=== PATIENT | male | born 1995 | race Caucasian/White ===

== ENCOUNTER 2017-02-02 20:34 | Emergency (ER) | payer OTHER ==
[~2017-02-02 20:34] MED LIST: DOXYCYCLINE; ELIMITE60 GM TOP; LORTAB 10-5001 EACH PO; NO MEDICATIONS; SILVADENE TOP; TYLENOL #3; VOLTAREN75 MG PO
[2017-02-02 21:00] LABS: URINE APPEARANCE CLEAR; URINE BILIRUBIN NEG (NEG); URINE BLOOD NEG (NEG); URINE COLOR YELLOW; URINE GLUCOSE NEG (NORM); URINE KETONE NEG (NEG); URINE LEUKOCYTE ESTERASE NEG (NEG); URINE NITRATE NEG (NEG); URINE PH 7.5 (5-8); URINE PROTEIN NEG (NEG); URINE SPECIFIC GRAVITY 1.015 (1.003-1.035); URINE UROBILINOGEN 0.2 MG/DL (NORM)
[2017-02-02 21:07] LABS: URINE SOURCE CLEAN CATCH
[2017-02-02 21:08] LABS: MICRO INDICATED? NO
== END 2017-02-02 22:18 | disposition home or self-care (01) ==
LOC: SED 20:34
PROVIDERS: Emergency Medicine
DX: R10.9 Unspecified abdominal pain (principal)
CPT/HCPCS: 81003; 96372; 99283; J1885